=== PATIENT | female | born 1980 | race Caucasian/White ===

== ENCOUNTER 2018-08-11 17:11 | Emergency (ER) | payer MEDICAID ==
[~2018-08-11] VITALS: Ht 165.1 cm; Wt 133.8 kg
[2018-08-11] MEDS ORDERED: CYCL-1 PO (18:33)
[2018-08-11] MEDS ORDERED: ACET-3067 PO (18:33)
[2018-08-11] MEDS ORDERED: HYDROcodone/acetaminophen 5mg/325mg tablet PO ONE (18:35)
[2018-08-11] MEDS ORDERED: ketorolac trometh inj. 60 MG/2 ML VIAL IM ONE (18:35)
[2018-08-11 19:05] VITALS: BP 154/90
== END 2018-08-11 19:07 | disposition home or self-care (01) ==
LOC: ER 17:12
DX: M54.41 Lumbago with sciatica, right side (principal); G89.29 Other chronic pain; M25.551 Pain in right hip; R05 Cough; R20.0 Anesthesia of skin; Z88.0 Allergy status to penicillin; Z88.2 Allergy status to sulfonamides; Z88.8 Allergy status to other drugs, medicaments and biological substances; Z91.030 Bee allergy status; Z79.899 Other long term (current) drug therapy; W01.0XXA Fall on same level from slipping, tripping and stumbling without subsequent striking against object, initial encounter; Y93.89 Activity, other specified; Y92.89 Other specified places as the place of occurrence of the external cause; Y99.8 Other external cause status
CPT/HCPCS: 73502; 96372; 99283; J1885

== ENCOUNTER 2019-06-12 15:58 | Emergency (ER) | payer MEDICAID ==
[~2019-06-12] VITALS: Ht 165.1 cm; Wt 143.0 kg
[~2019-06-12 15:58] MED LIST: CYCL-1 PO
[2019-06-12] MEDS ORDERED: ketorolac trometh inj. 60 MG/2 ML VIAL IM ONE (16:55)
[2019-06-12] MEDS ORDERED: CYCL-1 PO (16:58)
[2019-06-12] MEDS ORDERED: IBUP-1985 PO (16:59)
--- NOTE | 2019-06-12 18:21 | NUR ---
Ashok RAYGOZA AWARE OF BP, TALKED WITH PT AND RECOMMENDED FOLLOW UP WITH PMD IN 2 DAYS TO RECHECK, PT ALSO PLANS TO GO PHARMACY AND RECHECK BP
[2019-06-12 18:22] VITALS: BP 188/108
== END 2019-06-12 18:30 | disposition home or self-care (01) ==
LOC: ER 15:59
DX: S13.8XXA Sprain of joints and ligaments of other parts of neck, initial encounter (principal); R51 Headache; M25.511 Pain in right shoulder; M25.512 Pain in left shoulder; G89.29 Other chronic pain; Z88.0 Allergy status to penicillin; Z88.2 Allergy status to sulfonamides; Z91.030 Bee allergy status; Z79.899 Other long term (current) drug therapy; V89.2XXA Person injured in unspecified motor-vehicle accident, traffic, initial encounter; Y93.89 Activity, other specified; Y92.488 Other paved roadways as the place of occurrence of the external cause; Y99.8 Other external cause status
CPT/HCPCS: 71045; 72040; 96372; 99283; J1885

== ENCOUNTER 2021-02-13 20:12 | Emergency (ER) | payer MEDICAID ==
[~2021-02-13] VITALS: Ht 165.1 cm; Wt 100.0 kg
[~2021-02-13 20:12] MED LIST changes: +IBUP-1985 PO
[2021-02-13 20:30] VITALS: BP 185/118
[2021-02-13] MEDS ORDERED: acetaminophen 325mg tablet PO STA (20:33)
[2021-02-13] MEDS ORDERED: ibuprofen tablet 400 MG TABLET PO STA (20:33)
== END 2021-02-13 22:19 | disposition home or self-care (01) ==
LOC: ER 20:13
DX: M25.562 Pain in left knee (principal); G89.29 Other chronic pain; Z88.0 Allergy status to penicillin; Z88.1 Allergy status to other antibiotic agents; Z88.7 Allergy status to serum and vaccine; Z79.899 Other long term (current) drug therapy
CPT/HCPCS: 29505; 73564; 99283